=== PATIENT | male | born 2005 | race African-American/Black ===

== ENCOUNTER 2025-05-08 16:06 | Emergency (ER) | payer MEDICAID ==
[~2025-05-08] VITALS: Ht 172.7 cm; Wt 97.7 kg
--- NOTE | 2025-05-08 17:52 | DVH ---
RIGHT UPPER EXTREMITY VENOUS DUPLEX REASON FOR EXAMINATION: swelling COMPARISON: None TECHNIQUE: Using real-time freeze-frame technique with a high-frequency transducer, multiple longitu dinal and transverse sections were obtained. Simultaneous color flow and spectral Doppler imaging wa s performed. FINDINGS: Deep veins Internal jugular vein: Compressible. No thrombus identified. Expected Doppler flow. Subclavian vein: Expected Doppler flow. Axillary vein: Compressible. No thrombus identified. Expected Doppler flow. Brachial vein: Compressible. No thrombus identified. Expected Doppler flow. Radial vein: Compressible. No thrombus identified. Expected Doppler flow. Ulnar vein: Compressible. No thrombus identified. Expected Doppler flow. Superficial veins Cephalic vein: Compressible. No thrombus identified. Expected Doppler flow. Basilic vein: Compressible. No thrombus identified. Expected Doppler flow. IMPRESSION: No evidence of deep venous thrombosis.
[2025-05-08 18:25] VITALS: BP 122/68; PULSE 75; RESP 16; TEMP 98.7; O2SAT 97
--- NOTE | 2025-05-08 18:47 | ED.PDOC ---
Musculoskeletal HPI Comments [age] old male complaining of right upper arm pain. Patient states five days ago he gave plasma. States he started developed a bruise in his right bicep. States he has been having pain in the biceps, has a hard time stretching his arm well. No fever no chills. Chief Complaint: Upper Extremity Time Seen by MD: 16:19 Reviewed Notes: Nurses Notes Allergies: Coded Allergies: NO KNOWN ALLERGIES (Unverified , 11/26/13) Information Source: Patient Mode of Arrival: Ambulatory Location: Right Extremity Location: Arm Past Medical History PAST MEDICAL HISTORY: Denies Surgical History: Denies all surgeries Family History Family History: Unknown Social History Smoker: Non-Smoker Alcohol: Denies ETOH Use Drugs: Denies Drug Use Lives In: Home Constitutional: denies: chills, diaphoresis, fatigue, fever, malaise, sweats, weakness, others EENTM: denies: blurred vision, double vision, ear bleeding, ear discharge, ear drainage, ear pain, ear ringing, eye pain, eye redness, hearing loss, mouth pain, mouth swelling, nasal discharge, nose bleeding, nose congestion, nose pain, photophobia, tearing, throat pain, throat swelling, voice changes, others Respiratory: denies: cough, hemoptysis, orthopnea, SOB at rest, shortness of breath, SOB with excertion, stridor, wheezing, others Cardiovascular: denies: chest pain, dizzy spells, diaphoresis, Dyspnea on exertion, edema, irregular heart beat, left arm pain, lightheadedness, palpitations, PND, syncope, others Gastrointestinal: denies: abdomen distended, abdominal pain, blood streaked bowels, constipated, diarrhea, dysphagia, difficulty swallowing, hematemesis, melena, nausea, poor appetite, poor fluid intake, rectal bleeding, rectal pain, vomiting, others Genitourinary: reports: burning; denies: dysuria, flank pain, frequency, hematuria, incontinence, penile discharge, penile sore, pain, testicle pain, testicle swelling, urgency, others Neurological: denies: dizziness, fainting, headache, left sided numbness, left sided weakness, numbness, paresthesia, pre-existing deficit, right sided numbness, right sided weakness, seizure, speech problems, tingling, tremors, weakness, others Musculoskeletal: denies: back pain, gout, joint pain, joint swelling, muscle pain, muscle stiffness, neck pain, others Integumetry: denies: bruises, change in color, change in hair/nails, dryness, laceration, lesions, lumps, rash, wounds, others Allergic/Immunocompromised: denies: Difficulty Healing, Frequent Infections, Hives, Itching, others Hematologic/Lymphatic: denies: anemia, blood clots, easy bleeding, easy bruising, swollen glands, others Physical Exam General Appearance: No Apparent Distress, Normal HEENT: Normal ENT Inspection, Pharynx Normal, TMs Normal Neck: Full Range of Motion, Non-Tender, Normal, Normal Inspection Respiratory: Chest Non-Tender, Lungs Clear, No Accessory Muscle Use, No Respiratory Distress, Normal Breath Sounds Cardiovascular: No Edema, No JVD, No Murmur, No Gallop, Normal Peripheral Pulses, Regular Rate/Rhythm Breast Exam: Deferred Gastrointestinal: No Organomegaly, Non Tender, No Pulsatile Mass, Normal Bowel Sounds, Soft Genitalia: Deferred Pelvic: Deferred Rectal: Deferred Extremities: No calf tenderness, Normal capillary refill, No pedal edema, Other (Strong pulse palpated in the right radial pulse. Limited range motion in the right elbow due to the pain of the biceps. 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 Was a procedure done?: No Differential Diagnosis EXT Differential Diagnosis: Cellulitis, Deep Vein Thrombosis, Compartment Syndrome, Neurovascular injury X-Ray, Labs, Meds, VS Vital Signs Date Time Temp Pulse Resp B/P (MAP) Pulse Ox O2 Delivery O2 Flow Rate FiO2 05/08/25 18:25 98.7 75 16 122/68 (86) 97 98.7 05/08/25 16:10 98.5 81 13 139/82 97 98.5 X-Ray, Labs, Meds, VS Comment Imaging was reviewed by this provider, there is no obvious pathological or acute disease process. Pending radiology review Labs were reviewed by this provider, no abnormalities Vital signs reviewed by this provider, clinically stable Time of 1ST Reevaluation: 18:46 Reevaluation 1ST: Improved Patient Education/Counseling: Diagnosis, Treatment, Need For Follow Up (Follow- up with PCP in the next 2-4 days. Return to the emergency department in the ne xt 24-48 hours if symptoms worsen.) Family Education/Counseling: Diagnosis Departure 1 Departure Time of Disposition: 18:46 Impression: Primary Impression: Phlebitis after infusion Qualified Codes: T80.1XXA - Vascular complications following infusion, transfusion and therapeutic injection, initial encounter; I80.9 - Phlebitis and thrombophlebitis of unspecified site Disposition: 01 HOME / SELF CARE / HOMELESS Condition: Fair Discharged With: Self Critical Care Note Critical Care Time?: No Stability Stability form required: No Heart Score Heart Score: Heart Score Response (Comments) Value History N/A 0 EKG N/A 0 Age N/A 0 Risk Factors N/A 0 Troponin N/A 0 Total 0 DELON ALMAGUER May 08, 2025 18:47
== END 2025-05-08 19:56 | disposition home or self-care (01) ==
LOC: ER 16:06
DX: I80.8 Phlebitis and thrombophlebitis of other sites (principal)
CPT/HCPCS: 93971